=== PATIENT | female | born 1985 ===

== ENCOUNTER 2020-08-06 14:13 | Inpatient (IN) | payer BC ==
[~2020-08-06] VITALS: Ht 167.6 cm; Wt 78.0 kg
[2020-08-06] MEDS ORDERED: NEWBORN KIT ONE (21:51)
[2020-08-06] MEDS ORDERED: OXYTOCIN 30U/ 0.9% NaCL 500ML 500 ML IV ONE (22:00)
[2020-08-06] MEDS ORDERED: CALCIUM CARBONATE 500 MG TAB.CHEW PO PRN (22:00)
[2020-08-06] MEDS ORDERED: MISOPROSTOL 25 MCG TABLET VG PRN (22:00)
[2020-08-06] MEDS ORDERED: FENTANYL PF 100 MCG/2ML IV PRN (22:00)
[2020-08-06] MEDS ORDERED: FENTANYL PF 100 MCG/2ML IVPush PRN (22:00)
[2020-08-06] MEDS ORDERED: TERBUTALINE 1 MG/ML, 1ML SQ PRN (22:00)
[2020-08-06] MEDS ORDERED: TERBUTALINE 1 MG/ML, 1ML IVPush PRN (22:00)
[2020-08-06] MEDS ORDERED: D5%-LACTATED RINGERS 1,000 ML IV SCH (22:00)
[2020-08-06] MEDS ORDERED: METOCLOPRAMIDE 5 MG/ML, 2ML IVPush PRN (22:00)
[2020-08-06] MEDS ORDERED: SODIUM CITRATE/CITRIC ACID 30 ML UDC PO PRN (22:00)
[2020-08-06] MEDS ORDERED: ONDANSETRON 2MG/ML, 2ML IVPush PRN (22:00)
[2020-08-06] MEDS ORDERED: MISOPROSTOL 25 MCG TABLET ONE (22:17)
[2020-08-06 22:59] LABS: BASOPHILS % (AUTO) 0 % (0-1); EOSINOPHILS % (AUTO) 0 % (1-7); LYMPHOCYTES % (AUTO) 23 % (22-44); MD NO; MEAN CORPUSCULAR HEMOGLOBIN 28.2 pg (27.0-34.8); MEAN CORPUSCULAR HGB CONC 33.7 g/dL (32.4-35.8); MEAN PLATELET VOLUME 8.5 fL (7.4-10.4); MONOCYTES % (AUTO) 5 % (2-9); NEUTROPHILS % (AUTO) 72 % (42-75); PLATELET COUNT 234 x10^3/uL (130-400); RED BLOOD COUNT 3.64 x10^6/uL (3.82-5.3); RED CELL DISTRIBUTION WIDTH 15.6 % (9.6-15.2)
[2020-08-07] MEDS ORDERED: BETAMETHASONE 6 MG/ML, 5ML IM ONE ×2 (07:29→07:30)
[2020-08-07 09:03] LABS: ALANINE AMINOTRANSFERASE 12 U/L (12-78); ALBUMIN 2.5 g/dL (3.4-5.0); ANION GAP 8 mmol/L (5-15); CALCIUM 8.7 mg/dL (8.5-10.1); CHLORIDE 107 mmol/L (98-107); CREATININE 0.74 mg/dL (0.55-1.02)
[2020-08-07 09:06] LABS: ALKALINE PHOSPHATASE 144 U/L (45-117); BILIRUBIN,TOTAL 0.2 mg/dL (0.2-1.0); TOTAL PROTEIN 6.5 g/dL (6.4-8.2)
[2020-08-07] MEDS: LACTATED RINGERS 1,000 ML IV SCH ×2 (09:06→10:43)
[2020-08-07] MEDS ORDERED: MISOPROSTOL 200 MCG TABLET ONE (09:21)
[2020-08-07] MEDS ORDERED: LIDOCAINE 1%, 20ML ONE (09:21)
[2020-08-07] MEDS ORDERED: OXYTOCIN 30U/ 0.9% NaCL 500ML 500 ML ONE ×2 (09:22→19:47)
[2020-08-07] MEDS ORDERED: BUPIVACAINE 0.25% ONE (09:24)
[2020-08-07] MEDS ORDERED: FENTANYL/BUPIV./NS/PF 250 ML EPIDCONT ONE (09:24)
[2020-08-07] MEDS ORDERED: LACTATED RINGERS 1,000 ML IV SCH (10:00)
[2020-08-07] MEDS ORDERED: EPHEDRINE 50 MG/ML, 1ML IVPush PRN (10:00)
[2020-08-07] MEDS ORDERED: ONDANSETRON 2MG/ML, 2ML IVPush PRN (10:00)
[2020-08-07] MEDS ORDERED: LACTATED RINGERS 1,000 ML IVBOLUS PRN (10:00)
[2020-08-07] MEDS ORDERED: FENTANYL/BUPIV./NS/PF 250 ML EPIDCONT SCH (10:00)
[2020-08-07] MEDS ORDERED: NALOXONE 0.4 MG/ML, 1ML IVPush PRN (10:00)
[2020-08-07] MEDS ORDERED: DIPHENHYDRAMINE 50 MG/ML, 1ML IVPush PRN (10:00)
[2020-08-07] MEDS ORDERED: ACETAMINOPHEN 325 MG TABLET ONE (11:31)
[2020-08-07] MEDS: ACETAMINOPHEN 325 MG TABLET PO PRN (11:37)
[2020-08-07] MEDS ORDERED: OXYTOCIN 30U/ 0.9% NaCL 500ML 500 ML IV PRN (14:00)
[2020-08-07] MEDS ORDERED: TERBUTALINE 1 MG/ML, 1ML ONE (18:42)
[2020-08-07] MEDS ORDERED: OXYTOCIN 10 UNITS/ML, 1ML ONE (18:58)
[2020-08-07] MEDS ORDERED: SIMETHICONE 80 MG CHEW TAB PO PRN (20:00)
[2020-08-07] MEDS ORDERED: MISOPROSTOL 200 MCG TABLET PR PRN (20:00)
[2020-08-07] MEDS ORDERED: ACETAMINOPHEN 325 MG TABLET PO PRN (20:00)
[2020-08-07] MEDS: OXYTOCIN 30U/ 0.9% NaCL 500ML 500 ML IV SCH (20:00)
[2020-08-07] MEDS ORDERED: DOCUSATE 100 MG CAPSULE PO PRN (20:00)
[2020-08-07] MEDS ORDERED: ONDANSETRON 2MG/ML, 2ML IV PRN (20:00)
[2020-08-07] MEDS ORDERED: DEXTROSE 47%, 15GM GEL ONE (21:28)
[2020-08-07 22:10] VITALS: BP 107/67
[2020-08-08 02:40] VITALS: BP 113/71
[2020-08-08] MEDS: IBUPROFEN 800 MG TABLET PO PRN ×2 (02:46→11:36)
[2020-08-08 02:57] LABS: BASOPHILS % (AUTO) 0 % (0-1); EOSINOPHILS % (AUTO) 0 % (1-7); LYMPHOCYTES % (AUTO) 8 % (22-44); MEAN CORPUSCULAR HEMOGLOBIN 27.5 pg (27.0-34.8); MEAN PLATELET VOLUME 8.5 fL (7.4-10.4); MONOCYTES % (AUTO) 5 % (2-9); NEUTROPHILS % (AUTO) 88 % (42-75); PLATELET COUNT 234 x10^3/uL (130-400); RED CELL DISTRIBUTION WIDTH 15.8 % (9.6-15.2)
[2020-08-08 02:58] LABS: MD NO
[2020-08-08] MEDS: OXYTOCIN 30U/ 0.9% NaCL 500ML 500 ML IV SCH ×2 (06:00→16:00)
[2020-08-08 07:30] VITALS: BP 111/72
[2020-08-08] MEDS: ACETAMINOPHEN 325 MG TABLET PO PRN (07:45)
[2020-08-08] MEDS ORDERED: PRENATAL VIT/IRON/FA 1 EACH TABLET PO SCH (09:00)
[2020-08-08 14:45] VITALS: BP 116/78
[2020-08-08] MEDS ORDERED: IBUP-1223 PO (17:10)
== END 2020-08-08 18:40 | disposition home or self-care (01) | DRG 805 ==
LOC: LDIP 21:04 → 2NW 08-07 22:01
PROVIDERS: ADMIT Student in an Organized Health Care Education/Training Program; ATTEND Student in an Organized Health Care Education/Training Program
PROC: 10E0XZZ Delivery of Products of Conception, External Approach (ICD-10-PCS; principal; 2020-08-07)
PROC: 0KQM0ZZ Repair Perineum Muscle, Open Approach (ICD-10-PCS; 2020-08-07)
PROC: 10H07YZ Insertion of Other Device into Products of Conception, Via Natural or Artificial Opening (ICD-10-PCS; 2020-08-07)
PROC: 3E0R3BZ Introduction of Anesthetic Agent into Spinal Canal, Percutaneous Approach (ICD-10-PCS; 2020-08-07)
PROC: 00HU33Z Insertion of Infusion Device into Spinal Canal, Percutaneous Approach (ICD-10-PCS; 2020-08-07)
DX: O26.62 Liver and biliary tract disorders in childbirth (principal); K83.1 Obstruction of bile duct; Z37.0 Single live birth; O98.32 Other infections with a predominantly sexual mode of transmission complicating childbirth; A60.00 Herpesviral infection of urogenital system, unspecified; J45.909 Unspecified asthma, uncomplicated; O99.52 Diseases of the respiratory system complicating childbirth; O70.1 Second degree perineal laceration during delivery; Z3A.36 36 weeks gestation of pregnancy; Z88.5 Allergy status to narcotic agent
CPT/HCPCS: 36415; 80053; 85025; 86592; 86850; 86900; G0378; J0702; J2590; J3010; J7120